=== PATIENT | female | born 1975 | race Caucasian/White ===

== ENCOUNTER 2020-08-21 10:58 | Emergency (ER) | payer MEDICAID, SELFPAY ==
[2020-08-21 11:04] VITALS: BP 117/67; PULSE 62; RESP 18; TEMP 36.2; O2SAT 99
--- NOTE | 2020-08-21 11:29 | W.ED.GENAD ---
Discharge Plan Disposition Patient Disposition: HOME Condition: Good Discharge Details Clinical Impression: Ankle sprain Primary Care Provider: Unknown,Unknown ED Provider: Bela Gutierrez Home Meds and New Rx's Prescriptions: No Action No Known Home Meds RF: 0 Discharge Instructions Instructions: Ankle Sprain (ED) Additional Instructions: Imaging is reassuring for no fracture. However, I am concerned for ankle sprain. Please encourage rest, ice, elevation. Tylenol and/or ibuprofen as needed for discomfort. Please continue with brace for at least the next week. Referral for physical therapy is attached. Please follow-up with your primary care in 2 weeks for reevaluation. If you develop any new or worsening symptoms please seek care urgently once again Stand Alone Forms: Physical Therapy Referral Referrals: Koki Mosley [ [facility] STAFF PHYSICIAN] - Discharge Data Discharge Date/Time-TO BE ENTERED AT DEPARTURE: 08/21/20 12:33 Medical Decision Making Patient is a pleasant 45 year old female presenting today with c/c of right ankle pain x 2 weeks after rotational injury. Denies numbness, tingling. No othwr injury at the time of the incident. No break in the skin. No pain when at rest, discomfort laterally when weight bearing. Pain does not radiate, no pain in knee or foot. On exam, patient appars nontoxic. She has ecchymosis over dorsal right foot. Swelling in lateral ankle. Tender over ATFL and distal fibula, no palpable deformity. Will obtain XR for evvaluation of possible fracture. Patient declines analgesics at this time. FINDINGS: Bones/joints: No fracture or dislocation. Soft tissues: Mild soft tissue swelling. IMPRESSION: No acute fracture. Discussed these findings with the patient. Diagnosed with sprain, will fit with lace-up ankle brace. Enocuraged RICE. She has done well with PT historically, will send referral. She will f/u with PCP in 2 weeks for reevaluation. Return precautions discussed. All of her quesitons and cocnerns were addressed, she is in agreement with this plan. Ghazala Winston Weil, Marsha, and Johana Valle, ?Jurisprudential Inquiry, LearningtoThinkabout Social Policy.? HPI General Mode of arrival: ambulatory. Date/Time Provider Initiated Documentation: 08/21/20 11:00. Limitations to Documentation: no limitations. Information obtained by: patient and RN notes reviewed. History of Present Illness 45 year old F presents to the emergency department with the chief complaint of right ankle pain, described as mild, with intensity rated at 2. Quality is described as aching, and is localized to the right and lower extremity. Patient reports no radiation. Patient started experiencing this week(s) (2) and it has been constant. Immobilization improves symptom(s), Movement worsens symptoms . Patient notes no other symptoms.. Patient did receive the following treatments prior to arrival, none Related Data Home Medications Medication Instructions Recorded Confirmed Unknown [No Known Home Meds] 08/21/20 08/21/20 Allergies Allergy/AdvReac Type Severity Reaction Status Date / Time Sulfa (Sulfonamide AdvReac Mild Skin Rash Unverified 08/21/20 11:08 Antibiotics) General Stated Complaint: Orthopedic PHUC: 4 Review of Systems Constitutional Constitutional: Reports as per HPI, Denies chills, Denies fever(s), Denies headache(s) and Denies weakness ENT Ears, Nose, Mouth, and Throat: Denies headache(s) Cardiovascular Cardiovascular: Reports as per HPI Respiratory Respiratory: Reports as per HPI and Denies cough Musculoskeletal Musculoskeletal: Reports as per HPI and Denies tingling Integumentary/Breasts Skin/Breast: Reports as per HPI, Denies rash and Denies wounds Neurologic Neurologic: Reports as per HPI, Denies headache(s), Denies tingling, Denies paresthesias and Denies weakness PFSH Social History Smoking/Tobacco Use Status: Former Tobacco Use Smoking risk assessment performed?: Yes Alcohol Intake: former Drug use: Current Sobriety Substance use type: former substance user Do you feel safe at home: Yes Do you feel safe in your relationship?: Yes Exam Const General: cooperative, healthy appearing, comfortable, no acute distress, well developed and well groomed Nutritional Appearance: average body habitus and well nourished Orientation: alert and awake Resp Effort & Inspection: normal respiratory effort, able to speak in complete sentences and no respiratory distress Cardio Rate: regular rate Rhythm: regular rhythm Skin General skin exam: ecchymosis Neuro General: patient alert and patient awake Cognition: normal cognition Speech: speech normal Gait: antalgic Motor: muscle tone normal throughout Sensory Exam: no sensory deficits noted Extrem Ankle/foot/toe images: 1. Area of ecchymosis, no pain over this area. No pain proximal 5th metatarsal. 2+ distal pulses, sensation intact, intact capillary refill. No midfoot pain, no pain over calcaneus. Intact Achilles. 2. Area of discomfort. No focal area of tenderness. Pain over ATFL and distal fibula. No proximal fibula pain. Swelling noted. Psych Appearance: grossly normal and well kempt Mental Status: mental status grossly normal Speech and Movement: speech and movement normal Course Vital Signs Vital signs: Vital Signs Temperature 36.2 C L 08/21/20 11:04 Pulse 62 08/21/20 11:04 Respiratory Rate 18 08/21/20 11:04 Blood Pressure 117/67 08/21/20 11:04 Pulse Oximetry 99 08/21/20 11:04 Temperature 36.2 C L 08/21/20 11:04 Temperature Source Temporal Artery Scan 08/21/20 11:04 Pulse 62 08/21/20 11:04 Respiratory Rate 18 08/21/20 11:04 Respiratory Effort 08/21/20 11:08 Blood Pressure 117/67 08/21/20 11:04 Blood Pressure Position Sitting 08/21/20 11:04 Pulse Oximetry 99 08/21/20 11:04 Oxygen Delivery Method Room Air 08/21/20 11:04 Oxygen Flow Rate 0 08/21/20 11:04 Pain Level 2 08/21/20 11:04
--- NOTE | 2020-08-21 11:38 | DI.RAD_ITS ---
Exam(s) XR ANKLE RT COMPLETE EXAM: XR ANKLE RT COMPLETE CLINICAL HISTORY: rotational injuury 2 weeks ago. TECHNIQUE: 2D digital imaging was performed. COMPARISON: No exams were available for comparison FINDINGS: BONES: No acute fracture is present. No bony destructive lesion is seen. JOINTS: The ankle mortise is normally aligned. SOFT TISSUE: Normal. IMPRESSION: Unremarkable radiographs of the right ankle. DATA REPOSITORY: RADIATION DOSE DELIVERED:
--- NOTE | 2020-08-21 11:45 | DI.VRAD_ITS ---
PROCEDURE INFORMATION: Exam: XR Right Ankle Exam date and time: 08/21/2020 11:13 AM Age: 45 years old Clinical indication: Injury or trauma; Fall; Sprain or strain; Ankle; Right; Patient HX: Twisting injury 2 weeks ago TECHNIQUE: Imaging protocol: XR Right ankle. Views: 3 or more views. COMPARISON: No relevant prior studies available. FINDINGS: Bones/joints: No fracture or dislocation. Soft tissues: Mild soft tissue swelling. IMPRESSION: No acute fracture. Dictated and Authenticated by: Noemi Carson MD. Ordering:CHELA Cramer MD
== END 2020-08-21 12:33 | disposition home or self-care (01) ==
PROVIDERS: Emergency Provider Physician Assistant
DX: S93.491A Sprain of other ligament of right ankle, initial encounter (principal); X50.1XXA Overexertion from prolonged static or awkward postures, initial encounter
CPT/HCPCS: 29515; 99283; 73610